=== PATIENT | female | born 1985 ===

== ENCOUNTER 2021-07-19 12:16 | Inpatient (IN) ==
[2021-07-19] MEDS ORDERED: 0.9 % Sodium Chloride 1,000 ML IV ONE ×2 (14:20→17:20)
[2021-07-19] MEDS ORDERED: Isovue-370 500 ML BOTTLE IVP ONE (14:20)
[2021-07-19] MEDS ORDERED: Piperacillin/Tazobactam 3.375 GM in Water for inj. (sterile) 20 ML IVP ONE (14:21)
[2021-07-19 14:48] LABS: Bacteria,Urine Moderate per hpf (None-Few); Bilirubin,Urine Negative (Negative); Blood,Urine Large (Negative); Clarity,Urine Ex.Turbid (Clear); Color,Urine Yellow (Yellow); Glucose,Urine (UA) Normal (Normal); Hyaline Casts,Urine Many per lpf (None Seen); Ketones,Urine Negative (Negative); Leukocyte Esterase,Urine Large (Negative); Mucus,Urine Many per lpf (None-Few); Nitrite,Urine Negative (Negative); Protein,Urine >=300 mg/dL (Neg-Trace); RBC,Urine 50-100 per hpf (0-3); Specific Gravity,Urine 1.016 (1.010-1.025); Squamous Epithelial Cell,Urine Moderate per hpf (None-Few); WBC,Urine TNTC per hpf (0-3)
[2021-07-19] MEDS ORDERED: Lidocaine 1% 20 ML MDV INFILT ONE (14:50)
[2021-07-19 15:03] LABS: Hematocrit 27.5 % (35.3-44.9); Hemoglobin 8.6 g/dL (11.5-15.4); Mean Corpuscular HGB Conc 31.3 g/dL (31.6-35.5); Mean Corpuscular Volume 76.8 fL (83.0-100.0); Platelet Count 145 K/mcL (140-400); Red Blood Count 3.58 M/mcL (3.82-4.97); Red Cell Distribution Width 20.6 % (11.5-14.5); White Blood Count 21.4 K/mcL (4.3-11.1)
[2021-07-19 15:15] LABS: INR 1.6; Prothrombin Time 17.7 Seconds (9.4-12.1)
[2021-07-19 15:18] LABS: Activated Partial Thrombo Time 34.4 Seconds (26.0-36.0)
[2021-07-19 15:25] LABS: Alanine Aminotransferase 23 Units/L (7-52); Albumin 1.8 g/dL (3.5-5.7); Albumin/Globulin Ratio 0.4 (1.1-2.2); Alkaline Phosphatase 87 Units/L (34-104); Aspartate Amino Transferase 44 Units/L (13-39); BUN/Creatinine Ratio 8 (6-26); Bilirubin,Direct 0.2 mg/dL (0.0-0.2); Bilirubin,Indirect 0.4 mg/dL (0.0-1.0); Bilirubin,Total 0.6 mg/dL (0.3-1.0); Blood Urea Nitrogen 8 mg/dL (6-20); Calcium 6.7 mg/dL (8.6-10.3); Carbon Dioxide 25 mEq/L (23-29); Chloride 102 mEq/L (98-107); Globulin 4.7 g/dL (2.4-3.5); Glucose 71 mg/dL (70-105); Lipase 66 Units/L (11-82); Osmolality,Calculated 277 (280-300); Potassium 3.4 mEq/L (3.5-5.1); Sodium 135 mEq/L (136-145); Total Protein 6.5 g/dL (6.4-8.9); eGFR For African Americans > 60 (> 60); eGFR For Non-African Americans > 60 (> 60)
[2021-07-19 15:29] LABS: Influenza A PCR Negative (Negative); Influenza B PCR Negative (Negative); Resp. Syncytial Virus PCR Negative (Negative); SARS-CoV-2 by PCR (In House) Negative (Negative)
[2021-07-19 15:31] LABS: Lymphocytes # 0.4 K/mcL (0.6-4.6); Monocytes # 0.4 K/mcL (0.0-1.3); Neutrophils # 20.5 K/mcL (1.6-8.9); Smudge Cells Present (Not Present)
[2021-07-19 15:32] LABS: Platelet Estimate Normal (Normal)
[2021-07-19 15:33] LABS: Hypochromasia Present (Not Present); Toxic Granulation Present (Not Present)
[2021-07-19] MEDS ORDERED: *HR* LORazepam 2 MG/ML VIAL IVP ONE (16:12)
[2021-07-19] MEDS ORDERED: Thiamine (B-1) 100 MG in 0.9 % Sodium Chloride 50 ML IVPB ONE (16:13)
[2021-07-19] MEDS ORDERED: Naloxone 0.4 MG/ML INJ IVP PRN (18:14)
[2021-07-19] MEDS ORDERED: *HR* LORazepam 2 MG/ML VIAL IVP PRN ×3 (18:51)
[2021-07-19] MEDS ORDERED: Ibuprofen 600 MG TABLET PO STA (18:56)
[2021-07-19] MEDS ORDERED: cefTRIAXone 2,000 MG in Water for inj. (sterile) 20 ML IVP SCH (19:00)
[2021-07-19] MEDS ORDERED: Potassium Chloride 40 MEQ, Lidocaine 1% 2 ML in 0.9 % Sodium Chloride 500 ML IVPB ONE (20:22)
[2021-07-20 07:07] LABS: Hemoglobin 7.9 g/dL (11.5-15.4)
[2021-07-20 07:10] LABS: Hematocrit 26.5 % (35.3-44.9); Mean Corpuscular HGB Conc 29.8 g/dL (31.6-35.5); Mean Corpuscular Volume 80.5 fL (83.0-100.0); Platelet Count 101 K/mcL (140-400); Red Blood Count 3.29 M/mcL (3.82-4.97); Red Cell Distribution Width 21.6 % (11.5-14.5)
[2021-07-20 07:17] LABS: INR 2.2; Prothrombin Time 24.3 Seconds (9.4-12.1)
[2021-07-20 07:19] LABS: Albumin 1.7 g/dL (3.5-5.7); Albumin/Globulin Ratio 0.4 (1.1-2.2); Bilirubin,Direct 0.1 mg/dL (0.0-0.2); Bilirubin,Indirect 0.2 mg/dL (0.0-1.0); Bilirubin,Total 0.3 mg/dL (0.3-1.0); Calcium 6.2 mg/dL (8.6-10.3); Globulin 4.3 g/dL (2.4-3.5); Magnesium 0.9 mg/dL (1.6-2.6); Potassium 4.2 mEq/L (3.5-5.1)
[2021-07-20] MEDS: Ondansetron 4 MG/2 ML VIAL IVP PRN (07:30)
[2021-07-20] MEDS: Folic Acid 1 MG TABLET PO SCH (07:31)
[2021-07-20] MEDS: Ibuprofen 400 MG TABLET PO PRN (07:31)
[2021-07-20 07:38] LABS: Acinetobacter baumannii by PCR Not Detected (Not Detect); Candida albicans by PCR Not Detected (Not Detect); Candida glabrata by PCR Not Detected (Not Detect); Candida krusei by PCR Not Detected (Not Detect); Candida parapsilosis by PCR Not Detected (Not Detect); Candida tropicalis by PCR Not Detected (Not Detect); Enterobacter cloacae Cmplx PCR Not Detected (Not Detect); Enterococcus by PCR Not Detected (Not Detect); Escherichia coli by PCR DETECTED (Not Detect); Klebsiella oxytoca by PCR Not Detected (Not Detect); Klebsiella pneumoniae by PCR Not Detected (Not Detect); Proteus by PCR Not Detected (Not Detect); Pseudomonas aeruginosa by PCR Not Detected (Not Detect); Serratia marcescens by PCR Not Detected (Not Detect); Staphylococcus aureus by PCR Not Detected (Not Detect); Staphylococcus by PCR Not Detected (Not Detect); Streptococcus agalactiae(B)PCR Not Detected (Not Detect); Streptococcus by PCR Not Detected (Not Detect); Streptococcus pneumoniae PCR Not Detected (Not Detect); Streptococcus pyogenes (A) PCR Not Detected (Not Detect)
[2021-07-20] MEDS ORDERED: Ringers Solution, Lactated 500 ML IVC ONE (08:27)
[2021-07-20 08:46] LABS: White Blood Count 30.7 K/mcL (4.3-11.1)
[2021-07-20 08:51] LABS: Lymphocytes # 1.2 K/mcL (0.6-4.6); Monocytes # 0.3 K/mcL (0.0-1.3); Neutrophils # 27.6 K/mcL (1.6-8.9); Platelet Estimate Slight Decrease (Normal)
[2021-07-20 08:52] LABS: Anisocytosis 1+ (Not Present)
[2021-07-20 08:53] LABS: Hypochromasia Present (Not Present)
[2021-07-20] MEDS ORDERED: MethylPREDNISolone 40 MG/ML VIAL IVP SCH (09:00)
[2021-07-20] MEDS ORDERED: Furosemide 40 MG TABLET PO SCH (09:00)
[2021-07-20 09:07] LABS: Ferritin 54 ng/mL (10-120); Iron < 10 mcg/dL (50-170)
[2021-07-20] MEDS: Piperacillin/Tazobactam 3.375 GM in 0.9 % Sodium Chloride Mini Bag 100 ML IVPB SCH ×2 (09:58→19:08)
[2021-07-20] MEDS: Hydrocortisone Sodium Succ 100 MG/2 ML VIAL IVP SCH ×3 (10:10→19:08)
[2021-07-20] MEDS: Albumin 25% 25gram/100mL 25 GM/100 ML IV.SOLN IVPB SCH ×2 (14:02→15:24)
[2021-07-20] MEDS: Thiamine (B-1) 100 MG in 0.9 % Sodium Chloride 50 ML IVPB SCH (16:57)
[2021-07-21] MEDS: Hydrocortisone Sodium Succ 100 MG/2 ML VIAL IVP SCH ×4 (00:29→18:34)
[2021-07-21] MEDS: Albumin 25% 25gram/100mL 25 GM/100 ML IV.SOLN IVPB SCH ×3 (00:35→21:41)
[2021-07-21] MEDS: Melatonin 3 MG TABLET PO PRN ×2 (00:40→21:40)
[2021-07-21 02:43] LABS: Adenovirus F 40/41 PCR Not detected (Not detect); Astrovirus PCR Not detected (Not detect); C.difficile Toxin A/B Gene PCR Not detected (Not detect); Campylobacter by PCR Not detected (Not detect); Cryptosporidium by PCR Not detected (Not detect); Cyclospora cayetanensis PCR Not detected (Not detect); E. coli O157 by PCR Not detected (Not detect); Entamoeba histolytica PCR Not detected (Not detect); Enteroaggregative E.coli(EAEC) Not detected (Not detect); Enteropathogenic E.coli(EPEC) Not detected (Not detect); Enterotoxigenic E.coli (ETEC) Not detected (Not detect); Giardia lamblia PCR Not detected (Not detect); Norovirus GI/GII PCR Not detected (Not detect); Plesiomonas shigelloides PCR Not detected (Not detect); Rotavirus A PCR Not detected (Not detect); Salmonella PCR Not detected (Not detect); Sapovirus PCR Not detected (Not detect); Shig/EnteroinvasiveE coli EIEC Not detected (Not detect); Shigalike tox-prod E coli STEC Not detected (Not detect); Vibrio PCR Not detected (Not detect); Vibrio cholerae PCR Not detected (Not detect); Yersinia enterocolitica PCR Not detected (Not detect)
[2021-07-21] MEDS: Piperacillin/Tazobactam 3.375 GM in 0.9 % Sodium Chloride Mini Bag 100 ML IVPB SCH ×3 (03:57→18:34)
[2021-07-21 04:40] LABS: Hematocrit 23.3 % (35.3-44.9); Hemoglobin 7.2 g/dL (11.5-15.4); Immature Platelets 7.9 % (1.1-6.1); Mean Corpuscular HGB Conc 30.9 g/dL (31.6-35.5); Mean Corpuscular Hemoglobin 24.1 pg (28.0-33.3); Mean Corpuscular Volume 77.9 fL (83.0-100.0); Platelet Count 96 K/mcL (140-400); Red Blood Count 2.99 M/mcL (3.82-4.97); Red Cell Distribution Width 20.8 % (11.5-14.5); White Blood Count 28.3 K/mcL (4.3-11.1)
[2021-07-21 04:55] LABS: Albumin 2.3 g/dL (3.5-5.7); Albumin/Globulin Ratio 0.7 (1.1-2.2); Bilirubin,Total 0.3 mg/dL (0.3-1.0); Calcium 6.6 mg/dL (8.6-10.3); Globulin 3.2 g/dL (2.4-3.5); Phosphorous 3.1 mg/dL (2.7-4.5); Potassium 3.5 mEq/L (3.5-5.1); Total Protein 5.5 g/dL (6.4-8.9)
[2021-07-21] MEDS ORDERED: Ringers Solution, Lactated 500 ML IVC ONE (07:25)
[2021-07-21] MEDS: Folic Acid 1 MG TABLET PO SCH (09:17)
[2021-07-21] MEDS: Ibuprofen 400 MG TABLET PO PRN (09:17)
[2021-07-21] MEDS: Thiamine (B-1) 100 MG in 0.9 % Sodium Chloride 50 ML IVPB SCH (13:34)
[2021-07-21] MEDS: Ondansetron 4 MG/2 ML VIAL IVP PRN (18:33)
[2021-07-22] MEDS: Hydrocortisone Sodium Succ 100 MG/2 ML VIAL IVP SCH ×2 (00:24→05:48)
[2021-07-22] MEDS: Piperacillin/Tazobactam 3.375 GM in 0.9 % Sodium Chloride Mini Bag 100 ML IVPB SCH ×4 (00:25→23:52)
[2021-07-22] MEDS: Albumin 25% 25gram/100mL 25 GM/100 ML IV.SOLN IVPB SCH ×4 (00:30→21:52)
[2021-07-22] MEDS: Ibuprofen 400 MG TABLET PO PRN ×3 (02:02→22:03)
[2021-07-22 04:15] LABS: Hematocrit 22.4 % (35.3-44.9); Hemoglobin 6.9 g/dL (11.5-15.4); Immature Platelets 10.3 % (1.1-6.1); Mean Corpuscular HGB Conc 30.8 g/dL (31.6-35.5); Mean Corpuscular Hemoglobin 23.8 pg (28.0-33.3); Mean Corpuscular Volume 77.2 fL (83.0-100.0); Platelet Count 104 K/mcL (140-400); Red Cell Distribution Width 20.6 % (11.5-14.5); White Blood Count 21.7 K/mcL (4.3-11.1)
[2021-07-22 04:34] LABS: Albumin 2.7 g/dL (3.5-5.7); Albumin/Globulin Ratio 0.8 (1.1-2.2); Bilirubin,Total 0.4 mg/dL (0.3-1.0); Calcium 7.7 mg/dL (8.6-10.3); Globulin 3.4 g/dL (2.4-3.5); Magnesium 1.9 mg/dL (1.6-2.6); Potassium 3.7 mEq/L (3.5-5.1); Total Protein 6.1 g/dL (6.4-8.9)
[2021-07-22] MEDS ORDERED: 0.9 % Sodium Chloride 250 ML IVC SCH (07:30)
[2021-07-22] MEDS: Folic Acid 1 MG TABLET PO SCH (08:43)
[2021-07-22] MEDS ORDERED: predniSONE 10 MG TABLET PO SCH (09:00)
[2021-07-22] MEDS: Thiamine (B-1) 100 MG in 0.9 % Sodium Chloride 50 ML IVPB SCH (12:53)
[2021-07-22] MEDS: Melatonin 3 MG TABLET PO PRN (22:03)
[2021-07-22 23:42] LABS: Hematocrit 21.1 % (35.3-44.9); Hemoglobin 6.5 g/dL (11.5-15.4)
[2021-07-23] MEDS: Ondansetron 4 MG/2 ML VIAL IVP PRN (02:16)
[2021-07-23] MEDS: Levalbuterol Neb 1.25 MG/3 ML IH SCH ×4 (04:23→21:52)
[2021-07-23] MEDS ORDERED: Furosemide 20 MG/2 ML VIAL IVP ONE (04:33)
[2021-07-23] MEDS ORDERED: Perflutren Lipid Microsphere 1.3 ML in 0.9 % Sodium Chloride 8.7 ML IVP PRN (04:38)
[2021-07-23] MEDS: Albumin 25% 25gram/100mL 25 GM/100 ML IV.SOLN IVPB SCH ×2 (05:37→15:00)
[2021-07-23] MEDS ORDERED: methylPREDNISolone 125 MG/2 ML VIAL IVP ONE (08:50)
[2021-07-23 09:18] LABS: Hemoglobin 7.8 g/dL (11.5-15.4); Red Cell Distribution Width 19.9 % (11.5-14.5)
[2021-07-23 09:20] LABS: Hematocrit 25.3 % (35.3-44.9); Immature Platelets 9.7 % (1.1-6.1); Mean Corpuscular HGB Conc 30.8 g/dL (31.6-35.5); Mean Corpuscular Hemoglobin 24.4 pg (28.0-33.3); Mean Corpuscular Volume 79.1 fL (83.0-100.0); Platelet Count 103 K/mcL (140-400); White Blood Count 22.3 K/mcL (4.3-11.1)
[2021-07-23 09:28] LABS: INR 1.6; Prothrombin Time 17.8 Seconds (9.4-12.1)
[2021-07-23 09:40] LABS: Albumin 3.4 g/dL (3.5-5.7); Albumin/Globulin Ratio 1.1 (1.1-2.2); Bilirubin,Total 0.6 mg/dL (0.3-1.0); Calcium 8.5 mg/dL (8.6-10.3); Globulin 3.1 g/dL (2.4-3.5); Potassium 3.3 mEq/L (3.5-5.1); Total Protein 6.5 g/dL (6.4-8.9)
[2021-07-23] MEDS ORDERED: *HR* Midazolam HCl 5 MG/5 ML VIAL IVP ONE (10:12)
[2021-07-23] MEDS ORDERED: Potassium Chloride 40 MEQ, Lidocaine 1% 2 ML in 0.9 % Sodium Chloride 500 ML IVPB ONE (10:25)
[2021-07-23] MEDS ORDERED: Artificial Tears SOLN 15 ML BOTTLE BOTH EYES PRN (12:45)
[2021-07-23] MEDS ORDERED: Ringers Solution, Lactated 1,000 ML ONE (13:37)
[2021-07-23] MEDS: FentaNYL (PF) 1,000 MCG/100 ML IV.SOLN IVC SCH (15:14)
[2021-07-23] MEDS: Piperacillin/Tazobactam 3.375 GM in 0.9 % Sodium Chloride Mini Bag 100 ML IVPB SCH ×2 (15:15→19:09)
[2021-07-23 15:23] LABS: Appearance of Body Fluid Slightly Hazy (Clear); Volume of Body Fluid 15 mL
[2021-07-23 16:14] LABS: Appearance of Body Fluid Cloudy (Clear); Volume of Body Fluid 25 mL
[2021-07-23 16:49] LABS: Appearance of Body Fluid Hazy (Clear); Volume of Body Fluid 25 mL
[2021-07-23 17:56] LABS: ABG Base Excess -8 mEq/L (-2 to 3); ABG HCO3 19 mEq/L (21-27); ABG Oxygen Saturation 93 % (95-98); ABG PCO2 42 mmHg (35-45); ABG PH 7.26 pH Units (7.32-7.45); ABG PO2 75 mmHg (85-104); ABG TCO2 20 mEq/L (20-26); Blood Gas Modality ASSIST CONTROL; Blood Gas VT 400 cc
[2021-07-23 19:18] LABS: Bacteria,Urine Few per hpf (None-Few); Bilirubin,Urine Negative (Negative); Blood,Urine Moderate (Negative); Clarity,Urine Turbid (Clear); Color,Urine Light-Yellow (Yellow); Glucose,Urine (UA) Normal (Normal); Hyaline Casts,Urine Many per lpf (None Seen); Ketones,Urine Negative (Negative); Leukocyte Esterase,Urine Large (Negative); Mucus,Urine Few per lpf (None-Few); Nitrite,Urine Negative (Negative); Protein,Urine >=300 mg/dL (Neg-Trace); RBC,Urine 50-100 per hpf (0-3); Specific Gravity,Urine 1.019 (1.010-1.025); Squamous Epithelial Cell,Urine Few per hpf (None-Few); Urobilinogen,Urine Normal (Normal); WBC,Urine 50-100 per hpf (0-3); White Blood Cell Casts,Urine Few per lpf (None Seen)
[2021-07-23] MEDS ORDERED: *HR* Succinylcholine 200 MG/10 ML VIAL IVP ONE (19:31)
[2021-07-23] MEDS ORDERED: *HR* Propofol 200 MG/20 ML VIAL IVP ONE (19:31)
[2021-07-23] MEDS ORDERED: Lidocaine -MPF 2% 5 ML VIAL SQ ONE (19:31)
[2021-07-23] MEDS ORDERED: *HR* Rocuronium Bromide 50 MG/5 ML VIAL IVP ONE (19:31)
[2021-07-23] MEDS: Thiamine (B-1) 100 MG in 0.9 % Sodium Chloride 50 ML IVPB SCH (19:44)
[2021-07-23] MEDS: Pantoprazole 40 MG VIAL IVP SCH ×2 (19:44→20:24)
[2021-07-23] MEDS: Folic Acid 1 MG TABLET PO SCH (19:44)
[2021-07-23] MEDS: Artificial Tears SOLN 15 ML BOTTLE BOTH EYES SCH ×2 (19:45→20:24)
[2021-07-23] MEDS: Chlorhexidine Rinse 15 ML MOUTHWASH MM SCH (20:24)
[2021-07-23] MEDS: Budesonide/Formoterol 160/4.5 1 PUFF INH IH SCH (21:52)
[2021-07-23 22:11] LABS: Transferrin 172 mg/dL (203-362)
[2021-07-24 00:01] LABS: Complement C3 29 mg/dL (87-200)
[2021-07-24] MEDS: Artificial Tears SOLN 15 ML BOTTLE BOTH EYES SCH ×7 (00:09→23:54)
[2021-07-24] MEDS: Piperacillin/Tazobactam 3.375 GM in 0.9 % Sodium Chloride Mini Bag 100 ML IVPB SCH ×3 (00:09→15:57)
[2021-07-24] MEDS: FentaNYL (PF) 1,000 MCG/100 ML IV.SOLN IVC SCH ×5 (01:00→21:17)
[2021-07-24] MEDS: Levalbuterol Neb 1.25 MG/3 ML IH SCH ×4 (03:10→22:19)
[2021-07-24] MEDS ORDERED: Dextrose Gel 15 GM/37.5 ML TUBE PO PRN ×2 (03:24)
[2021-07-24] MEDS ORDERED: D5% in Water 1,000 ML IVC PRN (03:24)
[2021-07-24] MEDS ORDERED: *HR* Dextrose 50 % in Water (Syg) 50 ML SYRINGE IVP PRN (03:24)
[2021-07-24 03:58] LABS: Basophils % 0.1 %; Hemoglobin 7.7 g/dL (11.5-15.4)
[2021-07-24 03:59] LABS: VBG Ionized Calcium 1.26 mmol/L (1.15-1.35)
[2021-07-24 04:00] LABS: Hematocrit 26.4 % (35.3-44.9); Immature Granulocytes % 1.2 % (0-4); Immature Platelets 9.3 % (1.1-6.1); Lymphocytes # 0.5 K/mcL (0.6-4.6); Lymphocytes % 3.3 %; Mean Corpuscular HGB Conc 29.2 g/dL (31.6-35.5); Mean Corpuscular Hemoglobin 24.2 pg (28.0-33.3); Mean Platelet Volume 11.2 fL (9.4-12.4); Monocytes # 0.8 K/mcL (0.0-1.3); Monocytes % 4.7 %; Neutrophils # 14.7 K/mcL (1.6-8.9); Red Blood Count 3.18 M/mcL (3.82-4.97); Red Cell Distribution Width 20.6 % (11.5-14.5); Segmented Neutrophils % 90.7 %; White Blood Count 16.2 K/mcL (4.3-11.1)
[2021-07-24 04:01] LABS: Platelet Count 82 K/mcL (140-400)
[2021-07-24 04:17] LABS: Calcium 8.8 mg/dL (8.6-10.3); Magnesium 1.9 mg/dL (1.6-2.6); Phosphorous 6.3 mg/dL (2.7-4.5); Potassium 3.1 mEq/L (3.5-5.1)
[2021-07-24 04:26] LABS: ABG Base Excess -11 mEq/L (-2 to 3); ABG HCO3 17 mEq/L (21-27); ABG Oxygen Saturation 94 % (95-98); ABG PCO2 49 mmHg (35-45); ABG PH 7.15 pH Units (7.32-7.45); ABG PO2 92 mmHg (85-104); ABG TCO2 19 mEq/L (20-26); Blood Gas Modality ASSIST CONTROL; Blood Gas VT 400 cc
[2021-07-24] MEDS ORDERED: Potassium Chloride Elixir 20 MEQ/15 ML UDC GTUBE ONE (04:41)
[2021-07-24] MEDS: Doxycycline 100 MG in 0.9 % Sodium Chloride Mini Bag 100 ML IVPB SCH ×2 (05:23→18:44)
[2021-07-24] MEDS: Insulin LISPRO 300 UNITS/3 ML VIAL SUBQ SCH ×5 (05:33→23:54)
[2021-07-24] MEDS: Budesonide/Formoterol 160/4.5 1 PUFF INH IH SCH ×2 (07:50→22:19)
[2021-07-24] MEDS: Chlorhexidine Rinse 15 ML MOUTHWASH MM SCH ×2 (08:45→20:07)
[2021-07-24] MEDS: Pantoprazole 40 MG VIAL IVP SCH ×2 (08:46→20:08)
[2021-07-24] MEDS: Folic Acid 1 MG TABLET PO SCH (08:47)
[2021-07-24] MEDS: Thiamine (B-1) 100 MG in 0.9 % Sodium Chloride 50 ML IVPB SCH (11:07)
[2021-07-24] MEDS: Dexmedetomidine HCl 400 MCG/100 ML MLS IVC SCH (12:36)
[2021-07-24] MEDS ORDERED: 0.9 % Sodium Chloride 250 ML ONE (14:43)
[2021-07-24 14:55] LABS: Protein/Creatinine Ratio,Urine 5.2 mg/mg (0.00-0.20); Sodium, Urine 16.6 mEq/L
[2021-07-24] MEDS ORDERED: CYCLOPHOSPHAMIDE IVPB SCH (15:30)
[2021-07-24] MEDS ORDERED: SODIUM CHLORIDE 0.9% IVPB SCH (15:30)
[2021-07-24 23:10] LABS: Creatinine,Urine 56 mg/dL; Microalbum/Creatinine Ratio,Ur 1638 mcg/mg (Less than 30); Microalbumin,Urine 917 mg/L
[2021-07-25] MEDS: Piperacillin/Tazobactam 3.375 GM in 0.9 % Sodium Chloride Mini Bag 100 ML IVPB SCH ×4 (00:03→23:54)
[2021-07-25] MEDS: Levalbuterol Neb 1.25 MG/3 ML IH SCH ×4 (03:10→21:30)
[2021-07-25 03:44] LABS: ABG Base Excess -6 mEq/L (-2 to 3); ABG HCO3 19 mEq/L (21-27); ABG Oxygen Saturation 93 % (95-98); ABG PCO2 36 mmHg (35-45); ABG PH 7.33 pH Units (7.32-7.45); ABG PO2 73 mmHg (85-104); ABG TCO2 20 mEq/L (20-26); Blood Gas Modality AF; Blood Gas VT 350 cc
[2021-07-25] MEDS: FentaNYL (PF) 2,500 MCG/50 ML IV.SOLN IVC SCH ×3 (03:54→19:36)
[2021-07-25 04:07] LABS: Basophils % 0.1 %; Hematocrit 22.8 % (35.3-44.9); Hemoglobin 7.1 g/dL (11.5-15.4); Immature Granulocytes % 8.8 % (0-4); Lymphocytes # 0.7 K/mcL (0.6-4.6); Lymphocytes % 4.5 %; Mean Corpuscular HGB Conc 31.1 g/dL (31.6-35.5); Mean Corpuscular Volume 80.3 fL (83.0-100.0); Monocytes # 0.4 K/mcL (0.0-1.3); Neutrophils # 12.3 K/mcL (1.6-8.9); Red Blood Count 2.84 M/mcL (3.82-4.97); Red Cell Distribution Width 20.6 % (11.5-14.5); Segmented Neutrophils % 83.6 %; White Blood Count 14.7 K/mcL (4.3-11.1)
[2021-07-25 04:08] LABS: Platelet Count 72 K/mcL (140-400)
[2021-07-25] MEDS: Artificial Tears SOLN 15 ML BOTTLE BOTH EYES SCH ×6 (04:12→23:55)
[2021-07-25 04:23] LABS: Calcium 8.8 mg/dL (8.6-10.3); Magnesium 2.2 mg/dL (1.6-2.6); Phosphorous 6.3 mg/dL (2.7-4.5); Potassium 3.4 mEq/L (3.5-5.1)
[2021-07-25 04:23] LABS: VBG Ionized Calcium 1.18 mmol/L (1.15-1.35)
[2021-07-25 04:34] LABS: Anisocytosis 1+ (Not Present); Hypochromasia Present (Not Present); Poikilocytosis 1+ (Not Present)
[2021-07-25] MEDS ORDERED: Potassium Chloride Elixir 20 MEQ/15 ML UDC GTUBE ONE (05:20)
[2021-07-25] MEDS: Insulin LISPRO 300 UNITS/3 ML VIAL SUBQ SCH ×4 (05:50→23:55)
[2021-07-25] MEDS: Doxycycline 100 MG in 0.9 % Sodium Chloride Mini Bag 100 ML IVPB SCH ×2 (05:50→17:26)
[2021-07-25] MEDS: Pantoprazole 40 MG VIAL IVP SCH ×2 (07:22→21:23)
[2021-07-25] MEDS: Folic Acid 1 MG TABLET PO SCH (07:22)
[2021-07-25] MEDS: Chlorhexidine Rinse 15 ML MOUTHWASH MM SCH ×2 (07:22→21:23)
[2021-07-25] MEDS: Budesonide/Formoterol 160/4.5 1 PUFF INH IH SCH ×2 (07:23→21:30)
[2021-07-25] MEDS: Thiamine (B-1) 100 MG in 0.9 % Sodium Chloride 50 ML IVPB SCH (07:29)
[2021-07-25 08:35] LABS: INR 1.6; Prothrombin Time 17.4 Seconds (9.4-12.1)
[2021-07-25 08:37] LABS: Activated Partial Thrombo Time 32.8 Seconds (26.0-36.0)
[2021-07-25 08:41] LABS: Albumin 2.7 g/dL (3.5-5.7); Albumin/Globulin Ratio 0.9 (1.1-2.2); Bilirubin,Direct 0.5 mg/dL (0.0-0.2); Bilirubin,Indirect 0.3 mg/dL (0.0-1.0); Bilirubin,Total 0.8 mg/dL (0.3-1.0); Total Protein 5.7 g/dL (6.4-8.9)
[2021-07-25] MEDS ORDERED: mycophenolate mofetiL 250 MG/1.25 ML SUSP.RECON PO SCH (09:00)
[2021-07-25 09:05] LABS: Hepatitis B Surface Antigen Nonreactive (Nonreactive)
[2021-07-25 09:15] LABS: ABG Base Excess -7 mEq/L (-2 to 3); ABG HCO3 19 mEq/L (21-27); ABG Oxygen Saturation 93 % (95-98); ABG PCO2 41 mmHg (35-45); ABG PH 7.28 pH Units (7.32-7.45); ABG PO2 76 mmHg (85-104); ABG TCO2 21 mEq/L (20-26); Blood Gas VT 310 cc
[2021-07-25 09:34] LABS: Hepatitis B Core IgM Nonreactive (Nonreactive); Hepatitis C Virus Antibody Nonreactive (Nonreactive)
[2021-07-25 09:35] LABS: HIV-1&2 Antibody & p24 Ag Nonreactive (Nonreactive)
[2021-07-25 09:36] LABS: Hepatitis A Antibody IgM Nonreactive (Nonreactive)
[2021-07-25] MEDS ORDERED: *HR* Rocuronium Bromide 50 MG/5 ML VIAL ONE (10:37)
[2021-07-25] MEDS ORDERED: Levalbuterol Neb 1.25 MG/3 ML ONE (10:39)
[2021-07-25] MEDS: Levalbuterol Neb 1.25 MG/3 ML IH ONE ×2 (10:40→11:49)
[2021-07-25] MEDS ORDERED: *HR* Rocuronium Bromide 50 MG/5 ML VIAL IVP ONE (11:00)
[2021-07-25] MEDS: Dexmedetomidine HCl 400 MCG/100 ML MLS IVC SCH (11:06)
[2021-07-25] MEDS: Cisatracurium 200 MG in 0.9 % Sodium Chloride 180 ML IVC SCH (11:26)
[2021-07-25] MEDS: Sennosides/Docusate Sodium TABLET GTUBE SCH (11:48)
[2021-07-25] MEDS ORDERED: 0.9 % Sodium Chloride 1,000 ML IVC SCH (12:45)
[2021-07-25 14:24] LABS: ABG Base Excess -7 mEq/L (-2 to 3); ABG HCO3 19 mEq/L (21-27); ABG Oxygen Saturation 100 % (95-98); ABG PCO2 39 mmHg (35-45); ABG PH 7.29 pH Units (7.32-7.45); ABG PO2 395 mmHg (85-104); ABG TCO2 20 mEq/L (20-26); Blood Gas VT 350 cc
[2021-07-25 17:00] LABS: Influenza A PCR Body Fluid NOT DETECTED; Influenza B PCR Body Fluid NOT DETECTED; RVP Body Fluid Source BAL
[2021-07-25 17:00] LABS: Influenza A PCR Body Fluid NOT DETECTED; Influenza B PCR Body Fluid NOT DETECTED; RVP Body Fluid Source BAL
[2021-07-25 17:01] LABS: Influenza A PCR Body Fluid NOT DETECTED; Influenza B PCR Body Fluid NOT DETECTED; RVP Body Fluid Source BAL
[2021-07-25 22:26] LABS: Appearance of Body Fluid Cloudy (Clear); Volume of Body Fluid 42 mL
[2021-07-25] MEDS: mycophenolate mofetiL 250 MG/1.25 ML SUSP.RECON PO SCH (22:51)
[2021-07-26] MEDS: Cisatracurium 200 MG in 0.9 % Sodium Chloride 180 ML IVC SCH (02:04)
[2021-07-26] MEDS: Levalbuterol Neb 1.25 MG/3 ML IH SCH ×3 (03:20→16:04)
[2021-07-26 04:30] LABS: ABG Base Excess -10 mEq/L (-2 to 3); ABG HCO3 16 mEq/L (21-27); ABG Oxygen Saturation 98 % (95-98); ABG PCO2 31 mmHg (35-45); ABG PH 7.31 pH Units (7.32-7.45); ABG PO2 116 mmHg (85-104); ABG TCO2 17 mEq/L (20-26); Blood Gas Modality AF; Blood Gas VT 310 cc
[2021-07-26] MEDS: Artificial Tears SOLN 15 ML BOTTLE BOTH EYES SCH ×4 (04:33→15:42)
[2021-07-26 04:44] LABS: Mean Corpuscular Volume 79.6 fL (83.0-100.0)
[2021-07-26 04:46] LABS: Hematocrit 21.8 % (35.3-44.9); Hemoglobin 6.6 g/dL (11.5-15.4); Immature Platelets 8.6 % (1.1-6.1); Mean Corpuscular HGB Conc 30.3 g/dL (31.6-35.5); Mean Corpuscular Hemoglobin 24.1 pg (28.0-33.3); Nucleated Red Blood Cells 0.2 /100 WBC (0); Red Blood Count 2.74 M/mcL (3.82-4.97); Red Cell Distribution Width 20.9 % (11.5-14.5); White Blood Count 16.6 K/mcL (4.3-11.1)
[2021-07-26 04:47] LABS: VBG Ionized Calcium 1.13 mmol/L (1.15-1.35)
[2021-07-26 04:55] LABS: Calcium 8.6 mg/dL (8.6-10.3); Magnesium 2.2 mg/dL (1.6-2.6); Phosphorous 6.2 mg/dL (2.7-4.5); Platelet Count 84 K/mcL (140-400); Potassium 3.5 mEq/L (3.5-5.1)
[2021-07-26] MEDS: Doxycycline 100 MG in 0.9 % Sodium Chloride Mini Bag 100 ML IVPB SCH ×2 (04:58→17:52)
[2021-07-26] MEDS: Insulin LISPRO 300 UNITS/3 ML VIAL SUBQ SCH ×3 (06:45→17:53)
[2021-07-26] MEDS ORDERED: Potassium Chloride Elixir 20 MEQ/15 ML UDC GTUBE ONE (07:29)
[2021-07-26] MEDS: Budesonide/Formoterol 160/4.5 1 PUFF INH IH SCH (07:37)
[2021-07-26 08:03] LABS: Monocytes # 0.5 K/mcL (0.0-1.3); Neutrophils # 14.8 K/mcL (1.6-8.9)
[2021-07-26 08:04] LABS: Anisocytosis 1+ (Not Present); Hypochromasia Present (Not Present); Platelet Estimate Decreased (Normal); Target Cells 1+ (Not Present)
[2021-07-26] MEDS: FentaNYL (PF) 2,500 MCG/50 ML IV.SOLN IVC SCH (08:22)
[2021-07-26] MEDS: Calcium Gluconate 1gm/50mL 1 GM/50 ML BAG IVPB SCH ×2 (09:26→09:55)
[2021-07-26] MEDS: Pantoprazole 40 MG VIAL IVP SCH (09:30)
[2021-07-26] MEDS: Folic Acid 1 MG TABLET PO SCH (09:31)
[2021-07-26] MEDS: Sennosides/Docusate Sodium TABLET GTUBE SCH (09:31)
[2021-07-26] MEDS: Chlorhexidine Rinse 15 ML MOUTHWASH MM SCH (09:32)
[2021-07-26] MEDS: mycophenolate mofetiL 250 MG/1.25 ML SUSP.RECON PO SCH (09:32)
[2021-07-26] MEDS ORDERED: Heparin 1,000 UNITS/500 mL 500 ML ONE (09:35)
[2021-07-26] MEDS: Thiamine (B-1) 100 MG in 0.9 % Sodium Chloride 50 ML IVPB SCH (09:36)
[2021-07-26 09:38] LABS: mecA Methicillin-Resist Gene DETECTED (Not Detect)
[2021-07-26 09:39] LABS: Acinetobacter baumannii by PCR Not Detected (Not Detect); Candida albicans by PCR Not Detected (Not Detect); Candida glabrata by PCR Not Detected (Not Detect); Candida krusei by PCR Not Detected (Not Detect); Candida parapsilosis by PCR Not Detected (Not Detect); Candida tropicalis by PCR Not Detected (Not Detect); Enterobacter cloacae Cmplx PCR Not Detected (Not Detect); Enterobacteriaceae by PCR Not Detected (Not Detect); Enterococcus by PCR Not Detected (Not Detect); Escherichia coli by PCR Not Detected (Not Detect); Klebsiella oxytoca by PCR Not Detected (Not Detect); Klebsiella pneumoniae by PCR Not Detected (Not Detect); Proteus by PCR Not Detected (Not Detect); Pseudomonas aeruginosa by PCR Not Detected (Not Detect); Serratia marcescens by PCR Not Detected (Not Detect); Staphylococcus aureus by PCR Not Detected (Not Detect); Staphylococcus by PCR DETECTED (Not Detect); Streptococcus agalactiae(B)PCR Not Detected (Not Detect); Streptococcus by PCR Not Detected (Not Detect); Streptococcus pneumoniae PCR Not Detected (Not Detect); Streptococcus pyogenes (A) PCR Not Detected (Not Detect)
[2021-07-26] MEDS: MethylPREDNISolone 40 MG/ML VIAL IVP SCH ×2 (09:40→17:53)
[2021-07-26] MEDS: Piperacillin/Tazobactam 3.375 GM in 0.9 % Sodium Chloride Mini Bag 100 ML IVPB SCH (09:44)
[2021-07-26] MEDS ORDERED: *HR* Heparin 5,000 UNIT/ML VIAL ONE (10:25)
[2021-07-26] MEDS: Dexmedetomidine HCl 400 MCG/100 ML MLS IVC SCH (10:56)
[2021-07-26 14:59] LABS: RSV PCR Body Fluid NOT DETECTED
[2021-07-26 14:59] LABS: RSV PCR Body Fluid NOT DETECTED
[2021-07-26 14:59] LABS: RSV PCR Body Fluid NOT DETECTED
[2021-07-26 16:22] VITALS: TEMP 96.5
[2021-07-26 17:04] VITALS: O2SAT 97
[2021-07-26] MEDS ORDERED: Piperacillin/Tazobactam 3.375 GM in 0.9 % Sodium Chloride Mini Bag 100 ML IVPB SCH (18:00)
[2021-07-26 18:01] VITALS: BP 150/69; PULSE 79
[2021-07-27 02:23] LABS: HSV Source BAL
[2021-07-27 02:23] LABS: HSV Source BAL
[2021-07-27 02:23] LABS: HSV Source BAL
[2021-07-29 08:30] LABS: GBM IgG Multiplex Bead Assay 0 AU/mL (0-19); Glomerular Basement Memb IgG NEGATIVE (Negative)
[2021-07-31 23:19] LABS: ANCA IFA Titer <1:20 (<1:20)
[2021-08-01 11:13] LABS: ANCA IFA Pattern NONE DETECTED (None Detected); Serine Protease-3 Antibody 1 AU/mL (0-19)
== END 2021-07-26 19:32 | disposition short-term general hospital (02) | DRG 720 ==
LOC: 3ANU 12:16 → EMEROOARM 12:16 → SUATTDRO 20:11 → 3ANU 20:29 → ICNU 07-23 14:32
PROVIDERS: ADMIT Family Medicine; ATTEND Internal Medicine